=== PATIENT | male | born 1970 | race Caucasian/White ===

== ENCOUNTER 2017-04-18 10:59 | Inpatient (IN) | payer BC, OTHER ==
[2017-04-18] MEDS ORDERED: ONDANSETRON 4 MG/2 ML VIAL IVP PRN (14:37)
[2017-04-18] MEDS ORDERED: ONDANSETRON DISINTEGRATING 4 MG TAB PO PRN (14:37)
[2017-04-18] MEDS ORDERED: NS 1,000 ML IV SCH (14:45)
--- NOTE | 2017-04-18 14:55 | PDGENHP ---
History and Physical - Chief Complaint Acute shortness of breath - History of Present Illness Primary care provider: Dr Brasher HPI: 46-year-old male presenting with acute shortness of breath characterized as tachypnea at rest, exacerbated by minimal physical exertion, associated with rigors and fever of 103 degrees F as well as some confusion per his . Patient reports onset of symptoms during the afternoon of 04/17/2017 and worsening at 5:30 p.m. after work. He experienced 1 episode of nonbloody diarrhea his reports that he had 1 episode of choking when he was acutely confused. She brought him to the [facility] Emergency Department where he had blood cultures drawn and received empiric IV fluids and antibiotics. His blood cultures grew gram-negative rods and he received 5 L of fluid during the approximately 12 hours he was there. He was initially given vancomycin, ceftriaxone, levofloxacin for possible aspiration pneumonia and then he was given a dose of Zosyn for possible spontaneous bacterial peritonitis. His lactic acid level on presentation was 3.3 and increased to 5.9. His creatinine level on presentation was 1.1, and increased 1.6. His systolic blood pressure was around 90 and his heart rate was around 70. The last dose Lasix and propranolol were both taken on 04/17 in the morning. Of note, [facility] does not have access to intensive care unit, and the patient and his preferred to not be transferred to [facility]. According to the [facility] hospitalist, [facility] did not have availability for intensive care unit transfer. History Information - Allergies/Home Medication List Allergies/Adverse Reactions: No Known Allergies Allergy (Unverified 04/18/17 14:08) Home Medications: Furosemide [Lasix 20 MG (*)] 20 mg PO 04/18/17 [Last Taken Unknown] Pantoprazole Sodium [Protonix 40mg (*)] 40 mg PO DAILY 04/18/17 [Last Taken Unknown] Propranolol HCl [Inderal 20mg (*)] 20 mg PO 04/18/17 [Last Taken Unknown] I have personally reviewed and updated: family history, medical history, social history, surgical history - Past Medical History Additional medical history: Upper gastrointestinal hemorrhage secondary to bleeding varices on 03/28/2017. Cirrhosis secondary to alcohol abuse with low alpha-1 antitrypsin level. Gallbladder hydrops with sludge, total bilirubin 8.1 at time of discharge on 04/01. Lower extremity edema secondary to cirrhosis - Surgical History Additional surgical history: Variceal banding on 03/28 - Family History Additional family history: Father with coronary artery disease and myocardial infarction at age 65, alcoholism, no other recent sick family contacts - Social History Smoking Status: Former smoker (Quit on 03/08/2017) Alcohol Use: Other (Regular use of alcohol, last drink was 03/27/2017) Drug Use: None Additional social history: Works in [employer], no recent travel Review of Systems ROS: 10pt was reviewed & negative except for what was stated in HPI & below Constitutional: Reports: chills, fever Respiratory: Reports: shortness of breath, other (Choking) Gastrointestinal: Reports: diarrhea Physical Exam Temp Pulse Resp BP Pulse Ox 36.4 C 75 21 H 105/54 L 99 04/18/17 13:57 04/18/17 14:20 04/18/17 14:20 04/18/17 14:20 04/18/17 14:00 Constitutional: not in pain, uncomfortable, other (Appears diaphoretic and ill) Eyes: PERRL, EOMI, icteric sclera Ears, Nose, Mouth, Throat: other (Erythematous uvula with dried mucus in the posterior pharynx) Cardiovascular: edema (1+ bilateral lower extremity edema), No systolic murmur, No tachycardia Respiratory: reduced air movement (Bilateral bases), respiratory distress ( Visibly tachypneic), rhonchi (Right base posteriorly), No expiratory wheeze, No bronchial breath sounds Gastrointestinal: normoactive bowel sounds, ascites, distension (Moderate), No tenderness, No guarding Skin: warm, other (Sweating) Neurologic: AAOx3, No asterixes (No tremulousness) Psychiatric: interacting appropriately, not anxious, not encephalopathic, thought process linear Lab Data & Imaging Review Visualized and Interpreted EKG results: Yes EKG Interpretation: Positive for: other (Normal sinus mechanism, incomplete right bundle branch block, Q-wave in lead 3) Assessment & Plan Assessment: 46-year-old male presents with suspected septic shock secondary to gram- negative xiomara bacteremia Plan: 1. Suspected septic shock. POA, evidenced by sofa score of 6, meeting sepsis-3 criteria, with hypotension, lactic acidosis, acute kidney injury, severe hyperbilirubinemia, clear source of infection notably Gram-negative xiomara bacteremia resulting in autonomic dysregulation -discussed with Dr. Fournier at [facility], I requested a central venous line for CVP monitoring as well as possible pressors, he is able to perform -lactic acid prior to arrival 5.9, repeat at this time, will recheck at 6:00 p.m. -anticipate there may be delayed clearance of lactic acid but the fact that it petrona from 3.3-5.9 indicates that the patient has been experiencing end-organ hypoperfusion and that is how will interpret further rise in lactic acid level -continue on normal saline 100 cc an hour and check serum albumin level -CVP currently 12, hold on further boluses as the patient has received 5 L of fluid -if lactic acid level is rising and mean arterial pressure remains less than 65 , will add low-dose Levophed -continue on empiric IV antibiotics 2. Gram-negative xiomara bacteremia. Potential sources include spontaneous bacterial peritonitis versus biliary source with recent ultrasound demonstrating hydrops and sludge versus aspiration pneumonia -will get immediate paracentesis to evaluate for cell count, Gram stain, culture -will repeat chest x-ray to determine whether there is in fact a focal infiltrate in the right lower lobe as reported to me by Dr. Kam, [facility] hospitalist -will hold on biliary evaluation until the above 2 studies have been performed where better able to identify whether there affect the source of the bacteremia -will get Infectious Disease consultation -continue covering empirically with renally dosed Zosyn -will most likely recheck blood cultures tomorrow after 24 hours of appropriate IV antibiotics 3. Acute kidney injury. Secondary to a combination of septic shock and hypoperfusion with resultant hypovolemia, discharge creatinine level was 0.8 from 04/01 and patient has been actively taking diuretics for the past 2 and half weeks -hold diuretics -given IV fluids as mentioned above -repeat serum creatinine level now -monitor urine output and daily weights 4. Metabolic acidosis. Secondary to lactic acid, acute, monitor serum bicarbonate level 5. Anemia. Secondary to cirrhosis, decline from 11 to 9.8 at [facility], currently no evidence of acute blood loss, continue to monitor -continue Protonix once reconciled -high risk for bleeding with recently banded varices 6. Cirrhosis. Chronic liver disease secondary to alcoholism as well as possible low alpha-1 antitrypsin level per recent evaluation at [facility] 03/28-04/01 -recheck liver panel -repeat coags -hold propranolol -of note, patient's recent discharge summary from 04/01 does report that he was on 7 days of SBP prophylaxis with Bactrim Diet. Regular Prophylaxis. Low risk patient, may be high risk if immobile, start with SCDs and check platelet count as well as INR Code. Full per patient, is MPOA Disposition. Anticipated discharge uncertain this time, critically ill secondary to suspected septic shock requiring further work-up and stabilization as outlined above. 60 minutes of critical care time spent with this patient, at bedside, coordinating with the patient's nurses, coordinating care with the emergency department and hospitalist physicians at [facility], addressing the issues above, patient remains critically ill, requiring intensive care unit care.
[2017-04-18 15:24] LABS: MIXED VENOUS O2 SATURATION 76 % (65-75)
[2017-04-18 15:32] LABS: ADD DIFF? YES; ADD MORPH? NO; ATYPICAL LYMPHOCYTE FLAG 0 (0-99); FRAGMENT RBC FLAG 0 (0-99); HEMATOCRIT 30.8 % (40.0-51.0); HEMOGLOBIN 9.7 g/dL (13.7-17.5); LIPEMIA HEMOLYSIS FLAG 80 (0-99); MEAN CELL HEMOGLOBIN 34.3 pg (27.9-34.1); MEAN CELL HEMOGLOBIN CONCENTR. 31.5 g/dL (32.4-36.7); MEAN CELL VOLUME 108.8 fL (81.5-99.8); MEAN PLATELET VOLUME 11.8 fL (8.7-11.7); PLATELET CLUMPS FLAG 20 (0-99); PLATELET COUNT 95 10^3/uL (150-400); RED BLOOD CELL COUNT 2.83 10^6/uL (4.40-6.38)
[2017-04-18 15:39] LABS: ADD SCAN? NO; LEFT SHIFT FLG 210 (0-99)
[2017-04-18 15:51] LABS: ALANINE AMINOTRANSFERASE 57 IU/L (21-72); ALKALINE PHOSPHATASE 76 IU/L (38-126); ANION GAP 14 mEq/L (8-16); ASPARTATE AMINOTRANSFERASE 99 IU/L (17-59); BILIRUBIN,TOTAL 7.2 mg/dL (0.1-1.4); CALCIUM 7.3 mg/dL (8.5-10.4); CARBON DIOXIDE 11 mEq/l (22-31); CHLORIDE 114 mEq/L (97-110); CREATININE 1.6 mg/dL (0.7-1.3); GLOMERULAR FILTRATION RATE 46; GLUCOSE 125 mg/dL (70-100); SODIUM 139 mEq/L (134-144)
[2017-04-18 15:59] LABS: INR 3.26 (0.83-1.16); PROTIME(PATIENT) 33.7 SEC (12.0-15.0)
[2017-04-18 16:07] LABS: BILIRUBIN-CONJUGATED 4.2 mg/dL (0.0-0.5)
[2017-04-18] MEDS: SODIUM BICARBONATE 150 MEQ in D5W 1,000 ML IV SCH (16:24)
[2017-04-18] MEDS: PHYTONADIONE 2.5 MG/2.5 ML ORAL UDL PO SCH (16:25)
[2017-04-18] MEDS ORDERED: NOREPINEPHRINE/NS 500 ML IV SCH (16:30)
[2017-04-18 16:34] LABS: PLATELET ESTIMATE DECREASED (ADEQ)
[2017-04-18 16:36] LABS: TOXIC VACUOLIZATION PRESENT
[2017-04-18 16:37] LABS: MACROCYTES 2+; POLYCHROMASIA 1+; SCHISTOCYTES 1+
[2017-04-18 16:58] LABS: APTT 103.1 SEC (23.0-38.0)
[2017-04-18 17:00] LABS: PLATELET COUNT 95 10^3/uL (150-400)
[2017-04-18] MEDS ORDERED: ALBUMIN 25% 200 ML IV ONE (17:28)
[2017-04-18 17:34] LABS: FIBRINOGEN 148 mg/dL (214-456)
[2017-04-18] MEDS: PANTOPRAZOLE SODIUM 40 MG TAB PO SCH (20:18)
[2017-04-18] MEDS: PIPERACILLIN/TAZO 3.375 GM/DEX 50 ML IV SCH (21:36)
[2017-04-18] MEDS ORDERED: PHENYLEPHRINE HCL 50 MG in D5W 250 ML IV SCH (22:00)
[2017-04-18] MEDS ORDERED: NOREPINEPHRINE BITARTRATE 16 MG in NS 250 ML IV SCH (22:00)
[2017-04-18 22:07] LABS: ANION GAP 10 mEq/L (8-16); CALCIUM 7.4 mg/dL (8.5-10.4); CARBON DIOXIDE 15 mEq/l (22-31); CHLORIDE 111 mEq/L (97-110); CREATININE 1.7 mg/dL (0.7-1.3); GLOMERULAR FILTRATION RATE 43; GLUCOSE 110 mg/dL (70-100); POTASSIUM 4.6 mEq/L (3.5-5.2); SODIUM 136 mEq/L (134-144)
[2017-04-18 22:25] LABS: PROCALCITONIN 35.36 ng/mL (0.02-0.10)
[2017-04-18] MEDS: VASOPRESSIN/DEXTROSE 250 ML IV SCH (22:28)
[2017-04-18] MEDS: HYDROCORTISONE 100 MG/2 ML VIAL IVP SCH (23:15)
[2017-04-19] MEDS: SODIUM BICARBONATE 150 MEQ in D5W 1,000 ML IV SCH ×2 (02:34→14:21)
[2017-04-19] MEDS: PIPERACILLIN/TAZO 3.375 GM/DEX 50 ML IV SCH (06:18)
[2017-04-19 06:31] LABS: ADD DIFF? YES; ADD MORPH? NO; ATYPICAL LYMPHOCYTE FLAG 0 (0-99); FRAGMENT RBC FLAG 0 (0-99); HEMATOCRIT 26.9 % (40.0-51.0); HEMOGLOBIN 8.4 g/dL (13.7-17.5); LIPEMIA HEMOLYSIS FLAG 80 (0-99); MEAN CELL HEMOGLOBIN 33.3 pg (27.9-34.1); MEAN CELL HEMOGLOBIN CONCENTR. 31.2 g/dL (32.4-36.7); MEAN CELL VOLUME 106.7 fL (81.5-99.8); MEAN PLATELET VOLUME 11.7 fL (8.7-11.7); PLATELET CLUMPS FLAG 0 (0-99); PLATELET COUNT 84 10^3/uL (150-400); RED BLOOD CELL COUNT 2.52 10^6/uL (4.40-6.38); RED CELL DISTRIBUTION WIDTH 17.1 % (11.5-15.2)
[2017-04-19 06:34] LABS: ADD SCAN? NO; LEFT SHIFT FLG 190 (0-99)
[2017-04-19 06:40] LABS: INR 4.04 (0.83-1.16)
[2017-04-19 06:58] LABS: ECHINOCYTES 1+; MACROCYTES 1+
[2017-04-19 06:59] LABS: ACANTHOCYTES 1+; PLATELET ESTIMATE DECREASED (ADEQ)
[2017-04-19 07:00] LABS: POLYCHROMASIA 1+
[2017-04-19 07:09] LABS: ALANINE AMINOTRANSFERASE 53 IU/L (21-72); ALBUMIN 2.2 g/dL (3.5-5.0); ALKALINE PHOSPHATASE 83 IU/L (38-126); ANION GAP 10 mEq/L (8-16); ASPARTATE AMINOTRANSFERASE 84 IU/L (17-59); BILIRUBIN,TOTAL 6.3 mg/dL (0.1-1.4); CALCIUM 7.6 mg/dL (8.5-10.4); CARBON DIOXIDE 16 mEq/l (22-31); CHLORIDE 110 mEq/L (97-110); CREATININE 1.5 mg/dL (0.7-1.3); GLOMERULAR FILTRATION RATE 50; GLUCOSE 133 mg/dL (70-100); MAGNESIUM 1.5 mg/dL (1.6-2.3); POTASSIUM 4.4 mEq/L (3.5-5.2); SODIUM 136 mEq/L (134-144); TOTAL PROTEIN 4.8 g/dL (6.3-8.2)
[2017-04-19 07:19] LABS: BILIRUBIN-CONJUGATED 3.4 mg/dL (0.0-0.5); BILIRUBIN-UNCONJUGATED 2.9 mg/dL (0.0-1.1)
[2017-04-19 07:34] LABS: PROCALCITONIN 21.92 ng/mL (0.02-0.10)
[2017-04-19] MEDS: HYDROCORTISONE 100 MG/2 ML VIAL IVP SCH ×2 (08:40→20:49)
[2017-04-19] MEDS: PHYTONADIONE 2.5 MG/2.5 ML ORAL UDL PO SCH (08:41)
[2017-04-19] MEDS: VASOPRESSIN/DEXTROSE 250 ML IV SCH (08:41)
[2017-04-19] MEDS: PANTOPRAZOLE SODIUM 40 MG TAB PO SCH ×2 (08:41→20:48)
[2017-04-19] MEDS: FOLIC ACID 1 MG TAB PO SCH (08:41)
--- NOTE | 2017-04-19 11:16 | GCON ---
[f rep st] CONSULTATION INFECTIOUS DISEASE CONSULT DATE OF CONSULTATION: 04/19/2017 REFERRING PHYSICIAN: Christiano Shultz MD REASON FOR CONSULT: To assist in the management of this 46-year-old male with alcoholic cirrhosis, admitted with gram-negative xiomara bacteremia with gram- negative xiomara sepsis. Please note that the history was obtained from the patient, his , and data from [facility]. HISTORY OF PRESENT ILLNESS: This patient is a very pleasant 46-year-old male whose previous medical history is notable for the followin. Recent diagnosis of alcoholic cirrhosis: The patient presented to the [facility] on March 28, 2017 with hemodynamically stable hematemesis. An EGD revealed esophageal varices, and he underwent a banding procedure with 4 bands placed. He was admitted to the intensive care unit. An abdominal ultrasound revealed evidence of portal hypertension and cirrhosis, as well as a hydropic gallbladder with gallbladder thickening, but no ductal dilatation. This was felt to be nonspecific in the setting of background cirrhosis. The patient was not transfused and was clinically stable during that hospitalization. He was discharged on April 01, 2017 in stable condition. He was discharged on Bactrim 1 tab p.o. twice daily for 3 days as prophylaxis after banding procedure. He was referred to a checkering machine adjuster as well as an alcohol treatment program. Also of note, hepatitis C and B testing were negative during that hospitalization. Chest x-ray on March 28, 2017 did not reveal any evidence of infiltrate. 2. History of longstanding alcoholism: The patient states he drinks anywhere from 8-10 glasses of vodka per day for multiple years now. There is a family history of alcoholism. He has not had a drop to drink since March 27, 2017. He is unable to afford an intensive outpatient treatment program at [facility]. 3. History of longstanding tobacco use disorder: He has been cutting way down and has quit practically over the past 3 weeks. 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 He works from 7:30 to 5:30 in the afternoon. He has been doing reasonably well, but states that his abdominal girth and lower extremity swelling have become progressive since hospital discharge. That being said, he has been still able to work his long hours. He has had no melenic stool or further episodes of hematemesis. The patient states he was doing reasonably well until this past Thursday. He states that he woke up feeling well, went to work, ate lunch and around 5:00 p.m. prior to heading home from work started "shaking uncontrollably." The patient tells me that it was 90 degrees outside and he felt extremely cold. He drove himself home. His temperature at home taken by his orally was 100.6. She gave him some Tylenol and noticed that the patient appeared winded and was breathing fast. She states that she gave him half of a banana to eat along with some water, and heard him choking on this. A couple of hours later, the patient states that he developed significant abdominal cramping and had a large watery bowel movement that was without blood or mucus. He states that his abdomen felt better after this large bowel movement. There was no associated nausea, vomiting or blood in his stool. The patient's states that he did not want to go to the emergency room and was being very stubborn, so she decided to call 911 after speaking to a good friend of hers who is a storage wharfage clerk. Of note, the patient was still having rigors at the time the vp cardiovascular service line arrived. When they arrived, his temperature was 103.9. He was taken to [facility], where his temperature was 103 with a stable blood pressure. His white blood cell count was found to be elevated at 19,000, creatinine 1.6, and serum lactate was 5.9. A chest x-ray showed a right basilar opacification. Blood cultures were drawn and he was given vancomycin, ceftriaxone, and levofloxacin x1 as treatment for hospital associated pneumonia in the setting of his recent hospitalization earlier this month. He was heavily hydrated with 5 L of IV fluid. He essentially spent the night in the emergency department and was evaluated by the hospitalist the next day. Because the patient required treatment in an intensive care unit which was not available at the [facility], he was transferred to [facility] for further evaluation and treatment. The patient states he did not want to go to [facility], as he preferred to be closer to his home. He was given a dose of piperacillin/ tazobactam 3.375 g prior to transfer to our facility, and a central line was placed. Upon arrival here, the patient was afebrile with a temperature of 36.4 with a blood pressure of 88/46 at its lowest. The patient was transferred to the intensive care unit and started on pressors in the form of vasopressin and Levophed. He was continued on Zosyn. I am now asked to assist in his management. In speaking with the patient, he denies headache, blurred vision, nausea, vomiting, sore throat, shortness of breath, cough, chest pain or significant abdominal pain. No burning with urination. Diarrhea as outlined in the HPI. No skin lesions, or pain in his extremities. EXPOSURE HISTORY: Notable for no recent travel within or outside of the [place]. The patient states that 2 weeks ago he ate raw tuna rolls at a [employer] restaurant, but this was shortly after hospital discharge in early March. Of note, the patient states this past Thursday he obtained take out from "[employer]" restaurant in [place] and consumed 6 large raw oysters. His also ate them. The patient states that he tremendously enjoys eating raw oysters. He has a dog at home who is healthy. No other pets. No recent water exposure, other than to his chlorinated pool affiliated with his [facility]. He enjoys golfing. No rodent exposure. He does not garden, renee, or skin animals. No other raw foods, undercooked foods, homemade sausage or unpasteurized foods. He lives at home with his in [place]. His 19- year-old son also lives with them. He has been well. PREVIOUS MEDICAL HISTORY: As outlined above. ALLERGIES: No known drug allergies. MEDICATIONS: Presently include Zosyn 3.375 g IV q.8 hours, Levophed, vasopressin, folate, Solu-Cortef. SOCIAL HISTORY: Exposure history as outlined above. Other notable social history includes the fact that the patient was born and raised here in [place]. He is a former heavy smoker and drinker. He states that he was HIV tested years ago. That was negative, but has not been tested since then. 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 He has 6 children together with his and 1 son living at home who is healthy. No travel. He enjoys golfing, but no other unusual exposures. 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 FAMILY HISTORY: Notable for alcoholism. REVIEW OF SYSTEMS: As outlined above. Otherwise 10 systems are reviewed and are negative. PHYSICAL EXAMINATION: VITAL SIGNS: T-current is 36.7, T-max 36.9, heart rate 80, blood pressure 131/63, 98% on room air. GENERAL: A middle-aged male lying in bed, nontoxic appearing. HEENT: Atraumatic, normocephalic. Pupils equal, round, reactive to light. Extraocular movements are intact. Positive scleral icterus. No petechial lesions. No sinus process tenderness or discharge from the nares. Mucous membranes moist. No oral lesions noted. Dentition in fair repair. NECK: No cervical or supraclavicular lymphadenopathy. No thyromegaly or palpable thyroid nodules. The patient has a central line in his right neck that looks fine. CARDIOVASCULAR: S1 and S2. No rubs, gallops or murmurs. LUNGS: No increased respiratory effort. Decreased breath sounds at the right base with E to A changes. ABDOMEN: Minimally distended. No fluid waves. Hepatomegaly with liver margin palpable approximately 3 cm below the costal margin. Difficult to palpate spleen secondary to patient's body habitus. No significant tenderness to palpation. The patient's scrotum and phallus are slightly swollen. EXTREMITIES: 2+ pitting edema of the lower extremities. No ecchymoses, evidence of arthritis or muscle belly tenderness. SKIN: Warm and dry. As per the above, no ecchymoses. Scattered spider angiomata on his chest , back and lower extremities. No stigmata of endocarditis. NEUROLOGIC: He is alert and oriented x3. No asterixis. No focal weakness. Sensation intact to light touch. LABORATORY DATA: Microbiologic data: Blood cultures from [facility] x2 sets are growing 2/4 bottles gram-negative rods. No other cultures were obtained. The patient's white blood cell count here was 25.2, hematocrit 27, platelet count of 84, 71% neutrophils, 18% bands. BUN and creatinine 27 and 1.5. Total bilirubin of 6.3, down from 7.2. Conjugated 3.4, unconjugated 2.9. AST 84, ALT 53, procalcitonin of 21.9, down from 35. C difficile toxin in the stool negative. IMAGING: Chest x-ray, PA and lateral, done on April 18, 2017 at our facility shows "stable right basilar opacities and linear right midlung opacity that could be related to a combination of effusion and atelectasis. Underlying pneumonia cannot be excluded." Upon review of data through [facility], this was also done at [facility] which revealed a right basilar opacification that was not present on March 28, 2017. Ultrasound of the abdomen done at our facility was only done to look for evidence of ascitic fluid for paracentesis. There was only a trace amount of fluid found in the right lower quadrant, without quantity sufficient for paracentesis. IMPRESSION: 46-year-old male with recent diagnosis of cirrhosis secondary to long-standing alcohol abuse who now presents with gram-negative xiomara sepsis. Of particular note, the patient is status post recent ingestion of raw oysters 2 days prior to rigors and diarrhea, concerning for infection secondary to vibrio species, such as vulnificus or parahaemolyticus. He is at particularly high risk for this infection in the setting of cirrhosis. Thankfully, the patient has no skin lesions or evidence of cellulitis/necrotizing fasciitis, frequently seen with vibrio infections in this setting. He also has evidence of a right lower lobe infiltrate, but is oxygenating well and suspect this is from an aspiration event at the time he became ill with rigors. I do not feel this is the primary rivet driver of the patient's clinical presentation. He does not have significant ascites, which argues against a diagnosis of spontaneous bacterial peritonitis. Given benign exam, gallbladder or biliary ductal pathology seem less likely, although this still remains in the differential diagnosis of gram-negative xiomara bacteremia. Again, I am most concerned about his recent ingestion of raw oysters. PLAN: 1. Await identification of gram-negative rods from [facility]. I have called them ([phone]) and am waiting to hear back. 2. Will repeat blood cultures here. 3. Continue Zosyn for now and start levofloxacin 750 IV daily to cover vibrio species. 4. Repeat right upper quadrant ultrasound with particular attention to the gallbladder and biliary ducts. 5. Obtain urinalysis. 6. The patient has agreed to an HIV antibody test for completeness sake. 7. If the diarrhea persists, obtain GI stool panel, but suspect this diarrhea is related to possible infection with vibrio species. Thank you very much for consulting Infectious Diseases. We will continue to follow this patient with you. /[id number]/MODL MTDD
--- NOTE | 2017-04-19 11:16 | PCMIDPN ---
Assessment/Plan: 1. Vibrio vulnificus sepsis without evidence of skin/soft tissue infection or necrotizing fasciitis in patient with underlying cirrhosis: Counseled the patient extensively about avoiding shellfish and oysters moving forward given his new diagnosis of cirrhosis; explained to him that this infection was acquired through recent ingestion of raw oysters. Told him to avoid raw fish of any kind, or any raw food for that matter. Will continue with levofloxacin monotherapy. Repeat blood cultures are pending. I do not feel that he needs a repeat ultrasound to evaluate his bile duct/gallbladder given above diagnosis. Discontinue Piperacillin/tazobactam. 2. Right lower lobe infiltrate: Likely secondary to aspiration in the setting of active rigors. Levofloxacin should suffice. Subjective: Called by the microbiology laboratory at the [facility]. ) Blood cultures are growing in 2/4 bottles Vibrio vulnificus. Had long conversation with patient today about the loi of this infection (raw oysters). He states that no one had told him about this risk. Objective: Vital Signs Temp Pulse Resp BP Pulse Ox 36.7 C 76 26 H 128/63 H 96 04/19/17 08:00 04/19/17 10:00 04/19/17 10:00 04/19/17 10:00 04/19/17 10:00 Laboratory Results 04/19/17 06:20 04/19/17 06:20 04/18/17 04/19/17 04/20/17 05:59 05:59 05:59 Intake Total 2700 Output Total 375 Balance 2325 ICD10 Worksheet Patient Problems: Problems Problem Status Onset Sepsis due to Vibrio vulnificus Acute
--- NOTE | 2017-04-19 11:25 | HOSPPROG ---
Hospitalist Progress Note Assessment/Plan: Assessment: 46-year-old male presents with septic shock secondary to Vibrio bacteremia c/b acute liver failure from recently diagnosed alcoholic cirrhosis Plan: 1. Septic shock. POA, evidenced by sofa score of 9, meeting sepsis-3 criteria - worsening hypotension o/n, requiring combination of albumin + steroid burst + levo/vaso in order to stabilize - given liver failure, lactic acid level will likely not clear appropriately, but will track throughout day as we wean pressors to ensure it is not rising and indicative of hypoperfusion while we wean - cont stress steroids, likely accounting for rise in WBC this AM - hold on further albumin, CVP currently 13-16 2. Vibrio bacteremia. Likely source is raw oysters recently ingested in setting of cirrhosis and increased risk of infection - d/w Dr. Mccollum, adjusted to Levofloxacin and she will investigate whether to add second agent - repeating BCx here - original BCx at [facility], check for susceptibilities - ID consult greatly appreciated 3. Acute kidney injury. Secondary to a combination of septic shock and hypoperfusion with resultant hypovolemia, discharge creatinine level was 0.8 from 04/01 and patient has been actively taking diuretics for the past 2 and half weeks - hold diuretics - cont on bicarb gtt given acidosis - monitor UOP and observe for any sign of hepatorenal syndrome 4. Metabolic acidosis. Secondary to lactic acid, acute, monitor serum bicarbonate level and cont bicarb gtt 5. Anemia. Secondary to cirrhosis w/o e/o blood loss, decline from 11 to 8.4 w / IVF (likely dilutional) - high risk for bleeding with recently banded varices as well as DIC/liver- coagulopathy 6. Acute liver failure with Alcoholic Cirrhosis. New diagnosis 03/28-04/01 of chronic liver disease secondary to alcoholism as well as possible low alpha-1 antitrypsin level per recent evaluation at [facility] w/ varices banded - hold on propranolol - anemia, thrombocytopenia, coagulopathy - d/w Dr. Ramirez, not enough ascites to safely perform para - recent US demonstrating biliary sludge and hydrops, but will hold on repeat US as there is neg Liu's sign and source of infxn is clearly Vibrio - currently receiving SBP ppx w/ levo for above - MELD is 34 (up from 27 during 04/01 hospitalization) and he has 60-65% 90-day mortality risk - will need immediate outpt Hepatology eval if/when above resolved - hold on referral to liver transplant center at this time, as his last drink () is within 30-days and he is actively bacteremic, so would not be considered an immediate transplant candidate 7. DIC and Coagulopathy. 2/2 combination of infxn-induced DIC and underlying liver-failure mediated coagulopathy, evidenced by Fibrinogen 150 and INR rising to 4 - if bleeds, consider Plts/FFP - giving 5 days of Vit K - monitor daily PT/PTT 8. Possible RLL aspiration pneumonia. CXR w/ dense RLL infiltration and physical exam w/ aegophony/reduced air movement in R base - very unlikely to be source of current bacteremia - that said, currently covered for community organisms/aspiration by Levofloxacin - if clinically worsening despite tx for above, would consider HCAP (recently hospitalized) and add Vanco (received 1 dose at ED 04/18) Diet. Regular Prophylaxis. High risk, pharm contraindicated given above, SCDs Code. Full per patient, is MPOA Disposition. Anticipated discharge uncertain this time, critically ill secondary to suspected septic shock requiring further work-up and stabilization as outlined above. 60 minutes of critical care time spent with this patient, at bedside w/ patient/ , coordination with Dr. Horan/Veda on rounds, addressing above. Subjective: Patient with several loose bowel movements overnight Objective: Vital Signs Temp Pulse Resp BP Pulse Ox 36.7 C 76 26 H 128/63 H 96 04/19/17 08:00 04/19/17 10:00 04/19/17 10:00 04/19/17 10:00 04/19/17 10:00 Laboratory Results 04/19/17 06:20 04/19/17 06:20 04/18/17 04/19/17 04/20/17 05:59 05:59 05:59 Intake Total 2700 Output Total 375 Balance 2325 PT 40.0 SEC (12.0-15.0) H 04/19/17 06:20 INR 4.04 (0.83-1.16) H 04/19/17 06:20 - Physical Exam Constitutional: not in pain, other ( unwell appearing), No uncomfortable Eyes: EOMI, icteric sclera Ears, Nose, Mouth, Throat: moist mucous membranes, hearing normal, ears appear normal, no oral mucosal ulcers Cardiovascular: edema ( +bilateral lower extremity), No systolic murmur, No irregularly irregular, No tachycardia Respiratory: reduced air movement ( right base), rhonchi ( on inspiration right base), No expiratory wheeze, No bronchial breath sounds Gastrointestinal: normoactive bowel sounds, tenderness ( minimal discomfort with moderate palpation, no focality), distension ( moderate), No guarding Genitourinary: no bladder fullness, other ( no CVA tenderness to palpation) Skin: other ( sweaty appearing, no bullae) Neurologic: AAOx3, sensation intact bilaterally, other ( tremulous) Psychiatric: interacting appropriately, not encephalopathic, thought process linear, anxious ICD10 Worksheet Patient Problems: Problems Problem Status Onset Sepsis due to Vibrio vulnificus Acute
--- NOTE | 2017-04-19 14:35 | PDINTPN ---
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 BP is at goal on low-dose NE and G[employer] M[employer] at 0.4, steroids. Vibrio Bacteremia: On Levaquin, started 04/18 Cirrhosis with hepatic failure: Bilirubin and INR remain elevated SUSANNAH: Cr down slightly but still elevated. Good urine output. Anemia: Hemoglobin is down further, likely due to dilution. No signs of active bleeding. Metabolic acidosis: Both anion gap due to lactate as well as non-anion gap likely due to acute kidney injury. Plan: Continue to wean pressors. Continue Levaquin. Follow INR, liver function, hemoglobin, and lactate. 40 minutes critical care time managing multisystem organ failure in the setting of severe sepsis. 04/19/17 14:36 Subjective: Feels better, strength improved. Still having some loose bowel movements. No chills. Appetite recovering. Abdominal fullness persists. Objective: Vital Signs Temp Pulse Resp BP Pulse Ox 36.8 C 75 23 H 116/65 96 04/19/17 12:00 04/19/17 14:00 04/19/17 14:00 04/19/17 14:00 04/19/17 14:00 Laboratory Results 04/19/17 06:20 04/19/17 06:20 04/18/17 04/19/17 04/20/17 05:59 05:59 05:59 Intake Total 2700 Output Total 375 300 Balance 2325 -300 PT 40.0 SEC (12.0-15.0) H 04/19/17 06:20 INR 4.04 (0.83-1.16) H 04/19/17 06:20 Laboratory Tests 04/19/17 04/19/17 04/19/17 04:28 06:20 14:00 INR 4.04 H VBG Lactic Acid 4.3 H C. difficile Tox (PCR) NEGATIVE Physical Exam - Physical Exam General Appearance: alert, no apparent distress EENT: normal ENT inspection, scleral icterus (R), scleral icterus (L) Neck: normal inspection Respiratory: lungs clear, normal breath sounds Cardiac/Chest: regular rate, rhythm, edema Abdomen: normal bowel sounds, non-tender, soft Skin: normal color, warm/dry Extremities: non-tender Neuro/Psych: alert, normal mood/affect, oriented x 3 ICD10 Worksheet Patient Problems: Problems Problem Status Onset Sepsis due to Vibrio vulnificus Acute
--- NOTE | 2017-04-19 15:01 | GHP ---
[f rep st] HISTORY AND PHYSICAL DATE OF ADMISSION: 04/18/2017 PULMONARY/CRITICAL CARE CONSULTATION. REFERRING PROVIDER: Dr. Shultz. REASON FOR REFERRAL: Evaluation and management of severe sepsis. HISTORY: Mr. Soares is a 46-year-old male who was recently diagnosed with alcoholic cirrhosis afte r presenting with hematemesis 3 weeks ago. He was found to have esophageal varices and underwent ba nding in the intensive care unit. He was not transfused at that time. He was doing fairly well unt in yesterday evening, when he started having uncontrollable shakes and chills. He had a fever and s tarting to become quite tachypneic. This was followed by abdominal cramping and watery diarrhea. Aiden mason was transferred to the [facility] where he was found to be febrile and had an elevated wh ite blood count. Blood cultures were drawn and he was given vancomycin, ceftriaxone and Levaquin wi th the presumed diagnosis of hospital-acquired pneumonia. He was also given about 5 L of fluid. He was then transferred to [facility] after a central line was placed. Upon arrival, he was afebrile, but still was hypotensive and was started on vasopressin and Levophed and he was pl aced on Zosyn. He states that his fevers and chills have resolved, and he denies abdominal pain, cr amping or coughing. PAST MEDICAL HISTORY: Alcoholic cirrhosis with esophageal varices as above. MEDICATIONS: Include Protonix, Inderal, Lasix and Zosyn. ALLERGIES: None. SOCIAL HISTORY: The patient is a heavy drinker, drinking about 10 alcoholic beverages daily, stoppe d 3 weeks ago. He also has been a heavy smoker and stopped a month ago. 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 FAMILY HISTORY: Positive for alcoholism. REVIEW OF SYSTEMS: A 10-point review of systems adds nothing to the history of present illness. PHYSICAL EXAMINATION: GENERAL: The patient is awake, alert, in no acute distress. VITAL SIGNS: B lood pressure is 92/55 with a heart rate of 78. He is afebrile. Oxygen saturations are 100% on evetet m air. HEENT: Normocephalic and atraumatic. He has mild icterus. NECK: No adenopathy. Trachea is midline. CHEST: He has a few rales in the right base. CARDIAC: Regular rate and rhythm withou t murmur. ABDOMEN: Soft, nontender. Bowel sounds are present. EXTREMITIES: No clubbing, cyanosi s or edema. LABORATORY: His white blood count of 24.4 with 18% bands. His hemoglobin is 9.7 and MCV is 108.8. A creatinine is 1.6, carbon dioxide level is 14, total bilirubin is 7.2 with a conjugated bilirubin of 4.2 and AST is 99. Glucose is 125 and anion gap is 14. Lactic is 5.9. An INR is 3.3. A chest x-ray shows a right basilar infiltrate. Images reviewed. ASSESSMENT: 1. Severe sepsis. The patient presented with a fever, hypotension, acute renal insufficiency and a n elevated white blood count. The most likely cause is pneumonia. The patient has blood cultures t hat are positive for a gram-negative xiomara, based on cultures done at the [facility]. The pa susan's lactate is still significantly elevated, although this could in part be due to reduced clear ance from hepatic insufficiency. The patient has been started on Zosyn. His blood pressure is curr ently adequate and he does not require pressors. His CVP is 12, so no further fluids will be given. 2. Hepatic failure. The patient has an elevated bilirubin and INR suggesting significant synthetic dysfunction. He currently has no active bleeding. This is apparently due to alcoholic cirrhosis. 3. Acute kidney injury. We do not have a baseline creatinine, but it seems likely that there is an acute component to this, given the patient's critical illness and elevated creatinine. The patient has received fluid resuscitation for what is likely ATN and prerenal state due to sepsis. 4. Metabolic acidosis. This is likely due to the patient's lactic acidosis. 5. Anemia. This is likely chronic with the elevated MCV, but also with an acute component due to d ilution from the fluid resuscitation. RECOMMENDATIONS: 1. Continue empiric antibiotics. 2. Start pressors if necessary to maintain a mean arterial pressure greater than 65. 3. Follow lactate, INR and hemoglobin levels as well as renal function. There is no indication for red blood cell transfusion at this point. 50 minutes of critical care time managing the patient's multiple organ dysfunction in the setting of severe sepsis. /[id number]/MODL
[2017-04-19 15:29] LABS: COLOR AMBER; LEUKOCYTE ESTERASE,URINE NEGATIVE (NEGATIVE); NITRITE,URINE NEGATIVE (NEGATIVE)
[2017-04-19 15:35] LABS: MUCUS TRACE /lpf (NONE-1+)
[2017-04-20] MEDS: SODIUM BICARBONATE 150 MEQ in D5W 1,000 ML IV SCH (04:02)
[2017-04-20 04:09] LABS: ADD DIFF? YES; ADD MORPH? NO; ATYPICAL LYMPHOCYTE FLAG 0 (0-99); FRAGMENT RBC FLAG 0 (0-99); HEMATOCRIT 25.4 % (40.0-51.0); HEMOGLOBIN 8.2 g/dL (13.7-17.5); LIPEMIA HEMOLYSIS FLAG 80 (0-99); MEAN CELL HEMOGLOBIN 33.9 pg (27.9-34.1); MEAN CELL HEMOGLOBIN CONCENTR. 32.3 g/dL (32.4-36.7); MEAN PLATELET VOLUME 12.1 fL (8.7-11.7); PLATELET CLUMPS FLAG 0 (0-99); PLATELET COUNT 71 10^3/uL (150-400); RED BLOOD CELL COUNT 2.42 10^6/uL (4.40-6.38); RED CELL DISTRIBUTION WIDTH 16.9 % (11.5-15.2)
[2017-04-20 04:14] LABS: ADD SCAN? NO; LEFT SHIFT FLG 160 (0-99)
[2017-04-20 04:19] LABS: INR 3.4 (0.83-1.16); PROTIME(PATIENT) 34.9 SEC (12.0-15.0)
[2017-04-20 04:27] LABS: ALANINE AMINOTRANSFERASE 50 IU/L (21-72); ALKALINE PHOSPHATASE 69 IU/L (38-126); ANION GAP 7 mEq/L (8-16); ASPARTATE AMINOTRANSFERASE 63 IU/L (17-59); BILIRUBIN,TOTAL 5.5 mg/dL (0.1-1.4); CALCIUM 7.5 mg/dL (8.5-10.4); CARBON DIOXIDE 22 mEq/l (22-31); CHLORIDE 108 mEq/L (97-110); CREATININE 1.1 mg/dL (0.7-1.3); GLOMERULAR FILTRATION RATE > 60; GLUCOSE 104 mg/dL (70-100); POTASSIUM 3.6 mEq/L (3.5-5.2); SODIUM 137 mEq/L (134-144); TOTAL PROTEIN 4.4 g/dL (6.3-8.2)
[2017-04-20 04:38] LABS: BILIRUBIN-CONJUGATED 2.7 mg/dL (0.0-0.5); BILIRUBIN-UNCONJUGATED 2.8 mg/dL (0.0-1.1)
[2017-04-20 04:49] LABS: MACROCYTES 1+; POLYCHROMASIA 1+
[2017-04-20 04:55] LABS: HYPOCHROMIA 1+; PLATELET ESTIMATE DECREASED (ADEQ)
[2017-04-20] MEDS ORDERED: HYDROCORTISONE 100 MG/2 ML VIAL IVP SCH ×2 (09:00→21:00)
[2017-04-20] MEDS: FOLIC ACID 1 MG TAB PO SCH (09:24)
[2017-04-20] MEDS: PHYTONADIONE 2.5 MG/2.5 ML ORAL UDL PO SCH (09:24)
[2017-04-20] MEDS: PANTOPRAZOLE SODIUM 40 MG TAB PO SCH ×2 (09:24→20:19)
[2017-04-20] MEDS: HYDROCORTISONE 100 MG/2 ML VIAL IVP SCH ×2 (09:24→20:19)
--- NOTE | 2017-04-20 09:44 | PCMIDPN ---
Assessment/Plan: # Sepsis secondary to Vibrio vulnificus in patient with underlying cirrhosis after eating raw oysters --reviewed that all fish and meats should be eaten fully cooked --continue levofloxacin, change to PO today, tolerating PO well --repeat blood cx collected yesterday 04/19. Plan 10-14 days of therapy --talked with head of micro lab at [facility], gave feedback that from oysters. Deferred further testing with response to therapy and minimal resistance # Cirrhosis due to EtOH, abstinent ~20ish days! Support provided meds, Abx #3 levofloxacin 750mg IV daily #2 microbiology 04/19 blood cx (2) pending Subjective: patient feeling well worried about massive weight gain from fluids Objective: Vital Signs Temp Pulse Resp BP Pulse Ox 36.6 C 78 19 118/69 92 04/20/17 04:00 04/20/17 08:00 04/20/17 08:00 04/20/17 08:00 04/20/17 08:00 Laboratory Results 04/20/17 04:00 04/20/17 04:00 04/19/17 04/20/17 04/21/17 05:59 05:59 05:59 Intake Total 2700 3998 Output Total 375 2700 Balance 2325 1298 - Physical Exam General Appearance: alert, no apparent distress EENT: scleral icterus Respiratory: other (decreased bs bases), No accessory muscle use Neck: supple Cardiac/Chest: regular rate, rhythm Extremities: pedal edema Abdomen: non-tender, soft, ascites Skin: jaundice, pallor, No diaphoresis Neuro/Psych: alert, normal mood/affect, oriented x 3 - Line/s other Lines: other (R IJ), No drainage, No erythema - Time Spent With Patient Time Spent with Patient: greater than 25 minutes Time Spent with Patient: Greater than 25 minutes spent on this patients care, greater than 50% of time spent counseling, educating, and coordinating care regarding the above mentioned plan. ICD10 Worksheet Patient Problems: Problems Problem Status Onset Sepsis due to Vibrio vulnificus Acute
[2017-04-20] MEDS ORDERED: FUROSEMIDE 20 MG/2 ML VIAL IVP ONE (09:52)
--- NOTE | 2017-04-20 09:58 | HOSPPROG ---
Hospitalist Progress Note Assessment/Plan: 46-year-old male presents with septic shock secondary to Vibrio bacteremia c/b acute liver failure from recently diagnosed alcoholic cirrhosis Plan: #. Septic shock secondary to vibrio bacteremia after ingestion of raw oysters, with increased risk of infection due to compromised immune system in setting of cirrhosis. Overall improving. Required combination of albumin + steroid burst + levo/vaso in order to stabilize. Lactate trending down, slow to clear with poor hepatic clearance. -wean hydrocortisone -cont Levaquin per ID -repeat BCx's pending #. SUSANNAH. Secondary to septic shock and hypoperfusion, 2 weeks of diuretic use - resuming diuretics today given net positive 12 L - monitor UOP and observe for any sign of hepatorenal syndrome #. Metabolic acidosis. Secondary to lactic acid, acute, serum bicarb improved -wean off bicarb drip #. Anemia. Secondary to cirrhosis w/o e/o blood loss, decline from 11 to 8.2 w / IVF (likely some dilutional component) - high risk for bleeding with recently banded varices as well as DIC/liver- coagulopathy #. Acute liver failure with Alcoholic Cirrhosis. New diagnosis 03/28-04/01 of chronic liver disease secondary to alcoholism as well as possible low alpha-1 antitrypsin level per recent evaluation at [facility] w/ varices banded - holding propranolol - anemia, thrombocytopenia, coagulopathy - per radiology, ascites not sufficient for para - recent US demonstrating biliary sludge and hydrops, but defer further biliary imaging as infectious source is clearly vibrio - currently receiving SBP ppx w/ levo for above - MELD now 27, down from 34 (was 27 during 04/01 hospitalization), 76% 90-day mortality risk - will need outpt Hepatology eval if/when above resolved - hold on referral to liver transplant center at this time, as his last drink () is within 30-days and he is actively bacteremic, so would not be considered an immediate transplant candidate #. DIC and Coagulopathy. 2/2 combination of infxn-induced DIC and underlying liver-failure mediated coagulopathy - if bleeds, consider Plts/FFP - serial vit K, last dose tomorrow - monitor daily PT/PTT #. Possible RLL aspiration pneumonia. CXR w/ dense RLL infiltration and physical exam w/ aegophony/reduced air movement in R base - very unlikely to be source of current bacteremia, though covered for community organisms/aspiration by Levofloxacin Diet. Regular Prophylaxis. High risk, pharm contraindicated given above, SCDs / ambulation Code. Full per patient, is MPOA Disposition. Cont inpt Subjective: Pt feels better. Still some discomfort, 6/10 pain. Stools more formed. No fevers. Tolerating diet. No abdominal pain, N/V. Objective: Vital Signs Temp Pulse Resp BP Pulse Ox 36.6 C 78 19 118/69 92 04/20/17 04:00 04/20/17 08:00 04/20/17 08:00 04/20/17 08:00 04/20/17 08:00 Laboratory Results 04/20/17 04:00 04/20/17 04:00 04/19/17 04/20/17 04/21/17 05:59 05:59 05:59 Intake Total 2700 3998 Output Total 375 2700 Balance 2325 1298 PT 34.9 SEC (12.0-15.0) H 04/20/17 04:00 INR 3.40 (0.83-1.16) H 04/20/17 04:00 - Physical Exam Constitutional: no apparent distress Eyes: PERRL, icteric sclera Ears, Nose, Mouth, Throat: moist mucous membranes Cardiovascular: regular rate and rhythym Respiratory: no respiratory distress, clear to auscultation Gastrointestinal: normoactive bowel sounds, soft, non-tender abdomen Skin: warm Musculoskeletal: other (3+ LE pitting edema) Neurologic: AAOx3 Psychiatric: interacting appropriately ICD10 Worksheet Patient Problems: Problems Problem Status Onset Sepsis due to Vibrio vulnificus Acute
--- NOTE | 2017-04-20 11:51 | PDINTPN ---
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 Found to have Vibrio. On antibiotics. Being followed by Infectious Disease. Severe Sepsis: 2/2 to Vibrio, with positive blood cultures, likely due to eating oysters with underlying cirrhosis. Resolving. Now off norepinephrine as of today. Blood pressure acceptable. On Levaquin, started 04/18. Cirrhosis with hepatic failure: Bilirubin and INR remain elevated. Secondary to alcohol. Diagnosed earlier this month. Hospitalized at [facility] at that time. SUSANNAH: Resolving. Cr down: 1.1 today. Good urine output but up 10 kilos secondary to volume resuscitation. To be given Lasix today. Anemia: Hemoglobin is down further, 25 today. Secondary to dilution. No signs of active bleeding. Metabolic acidosis: Resolving. Lactate 2.8 today, bicarb 22. GI prophylaxis: Pantoprazole DVT prophylaxis: SCDs, ambulating now. Plan: Wean intravenous fluids. Lasix 20 mg x1 today. Follow blood pressure and clinical status.. Continue Levaquin. Follow INR, liver function, hemoglobin, and lactate. Can possibly transition to a medical-surgical status or step-down unit status today. Will reassess early this afternoon. 30 minutes of critical care time spent with the patient today. Discussed with the patient, Infectious Disease, hospitalist, nursing, and the ICU multi disciplinary team. Objective: Vital Signs Temp Pulse Resp BP Pulse Ox 37.2 C 75 18 122/68 H 94 04/20/17 10:00 04/20/17 10:00 04/20/17 10:00 04/20/17 10:00 04/20/17 10:00 Laboratory Results 04/20/17 04:00 04/20/17 04:00 04/19/17 04/20/17 04/21/17 05:59 05:59 05:59 Intake Total 2700 3998 Output Total 375 2700 1200 Balance 2325 1298 -1200 PT 34.9 SEC (12.0-15.0) H 04/20/17 04:00 INR 3.40 (0.83-1.16) H 04/20/17 04:00 ICD10 Worksheet Patient Problems: Problems Problem Status Onset Sepsis due to Vibrio vulnificus Acute
[2017-04-21 06:06] LABS: % IMMATURE GRANULYOCYTES 0.8 % (0.0-1.1); ABSOLUTE IMMATURE GRANULOCYTES 0.12 10^3/uL (0.00-0.10); ADD DIFF? NO; ADD MORPH? NO; ADD SCAN? NO; ATYPICAL LYMPHOCYTE FLAG 0 (0-99); FRAGMENT RBC FLAG 0 (0-99); HEMATOCRIT 26.7 % (40.0-51.0); HEMOGLOBIN 8.7 g/dL (13.7-17.5); LEFT SHIFT FLG 30 (0-99); LIPEMIA HEMOLYSIS FLAG 80 (0-99); MEAN CELL HEMOGLOBIN 33.7 pg (27.9-34.1); MEAN CELL HEMOGLOBIN CONCENTR. 32.6 g/dL (32.4-36.7); MEAN CELL VOLUME 103.5 fL (81.5-99.8); MEAN PLATELET VOLUME 11.9 fL (8.7-11.7); PLATELET CLUMPS FLAG 0 (0-99); PLATELET COUNT 75 10^3/uL (150-400); RED BLOOD CELL COUNT 2.58 10^6/uL (4.40-6.38); RED CELL DISTRIBUTION WIDTH 16.3 % (11.5-15.2)
[2017-04-21 06:23] LABS: ALANINE AMINOTRANSFERASE 53 IU/L (21-72); ALBUMIN 1.8 g/dL (3.5-5.0); ALKALINE PHOSPHATASE 76 IU/L (38-126); ANION GAP 4 mEq/L (8-16); ASPARTATE AMINOTRANSFERASE 62 IU/L (17-59); BILIRUBIN,TOTAL 5.1 mg/dL (0.1-1.4); CALCIUM 7.6 mg/dL (8.5-10.4); CARBON DIOXIDE 26 mEq/l (22-31); CHLORIDE 112 mEq/L (97-110); GLOMERULAR FILTRATION RATE > 60; GLUCOSE 90 mg/dL (70-100); POTASSIUM 3.2 mEq/L (3.5-5.2); SODIUM 142 mEq/L (134-144); TOTAL PROTEIN 4.2 g/dL (6.3-8.2)
[2017-04-21 06:40] LABS: BILIRUBIN-CONJUGATED 2.6 mg/dL (0.0-0.5); BILIRUBIN-UNCONJUGATED 2.5 mg/dL (0.0-1.1)
[2017-04-21] MEDS: PANTOPRAZOLE SODIUM 40 MG TAB PO SCH ×2 (10:33→20:36)
[2017-04-21] MEDS: FOLIC ACID 1 MG TAB PO SCH (10:33)
[2017-04-21] MEDS: FUROSEMIDE 20 MG/2 ML VIAL IVP SCH (10:34)
[2017-04-21] MEDS: HYDROCORTISONE 100 MG/2 ML VIAL IVP SCH (10:35)
--- NOTE | 2017-04-21 12:34 | PCMIDPN ---
Assessment/Plan: Assessment/Plan: 1. Sepsis secondary to Vibrio vulnificus: - Underlying Cirrhosis. - Source secondary to consumption of raw oysters. -f/u blood cx from 04/19/17 so far ngtd. -On levaquin PO. Plan for 14 days from negative blood cx. -Reviewed lab and culture results with patient. -Reviewed plan of care with patient regarding antibiotics etc. -Will set up OP follow up. Hopefully home soon. -Will coordinate with hospitalist team. Meds levaquin 750mg PO daily.-#3/ from negative blood cx. Subjective: Afebrile. Feeling better overall. Denies abd pain as such except for related to fluid. Last loose stool was yesterday. Appetite intact, ate breakfast. DEnies sob, rash. Ongoing LE edema. Objective: Vital Signs Temp Pulse Resp BP Pulse Ox 36.6 C 65 18 115/72 94 04/21/17 07:43 04/21/17 07:43 04/21/17 07:43 04/21/17 07:43 04/21/17 07:43 Laboratory Results 04/21/17 05:55 04/21/17 05:55 04/20/17 04/21/17 04/22/17 05:59 05:59 05:59 Intake Total 3998 1930 Output Total 2700 4200 Balance 1298 -2270 - Physical Exam General Appearance: alert, no apparent distress EENT: scleral icterus Respiratory: lungs clear Cardiac/Chest: regular rate, rhythm, systolic murmur Extremities: swelling (b/l LE, pitting) Abdomen: normal bowel sounds, non-tender, soft, distended Skin: No erythema ICD10 Worksheet Patient Problems: Problems Problem Status Onset Sepsis due to Vibrio vulnificus Acute
[2017-04-21] MEDS: PHYTONADIONE 2.5 MG/2.5 ML ORAL UDL PO SCH (15:14)
[2017-04-21] MEDS ORDERED: PROTOCOL POTASSIUM 1 DOSE MISC PRN (18:01)
--- NOTE | 2017-04-21 18:19 | HOSPPROG ---
Hospitalist Progress Note Assessment/Plan: 46-year-old male presents with septic shock secondary to Vibrio bacteremia c/b acute liver failure from recently diagnosed alcoholic cirrhosis Plan: #. Septic shock secondary to vibrio bacteremia after ingestion of raw oysters, with increased risk of infection due to compromised immune system in setting of cirrhosis. Overall improving. Required combination of albumin + steroid burst + levo/vaso in order to stabilize. -weaned off hydrocortisone -cont Levaquin -repeat BCx's NGTD #. SUSANNAH. Secondary to septic shock and hypoperfusion, 2 weeks of diuretic use - monitor UOP and observe for any sign of hepatorenal syndrome #. Volume overload. Diuresed net neg 4L since yesterday, weight 104 kg --> 102.8 kg. -cont IV Lasix -follow I&O, daily weights #. Metabolic acidosis. Secondary to lactic acidosis, resolved. Off bicarb. #. Anemia. Secondary to cirrhosis w/o e/o blood loss, decline from 11 to 8.2 w / IVF (likely some dilutional component). Hgb stable, up to 8.7. - high risk for bleeding with recently banded varices as well as DIC/liver- coagulopathy #. Acute liver failure with Alcoholic Cirrhosis. New diagnosis 03/28 of chronic liver disease secondary to alcoholism as well as possible low alpha-1 antitrypsin level per recent evaluation at [facility] w/ varices banded - Lasix resumed as above - per radiology, ascites not sufficient for para - recent US demonstrating biliary sludge and hydrops, but defer further biliary imaging as infectious source is clearly vibrio - currently receiving SBP ppx w/ levo - MELD now 27, down from 34 (was 27 during 04/01 hospitalization), 76% 90-day mortality risk - will need outpt Hepatology eval - not currently transplant candidate, last drink 03/27 #. Esophageal varices. No e/o bleeding. -resume propranolol #. DIC and Coagulopathy. 2/2 combination of infxn-induced DIC and underlying liver-failure mediated coagulopathy - if bleeds, consider Plts/FFP - s/p 3 d vit K - monitor daily PT/PTT #. Possible RLL aspiration pneumonia. CXR w/ dense RLL infiltration and physical exam w/ aegophony/reduced air movement in R base - very unlikely to be source of current bacteremia, though covered for community organisms/aspiration by Levofloxacin Diet. Regular Prophylaxis. High risk, pharm contraindicated given above, SCDs / ambulation Code. Full per patient, is MPOA Disposition. Cont inpt Subjective: Pt feels better, but c/o LE and generalized edema. No abdominal pain, CP or SOB. No fevers. Ambulating. Tolerating diet. Objective: Vital Signs Temp Pulse Resp BP Pulse Ox 36.7 C 64 16 130/72 H 97 04/21/17 15:48 04/21/17 15:48 04/21/17 15:48 04/21/17 15:48 04/21/17 15:48 Laboratory Results 04/21/17 05:55 04/21/17 05:55 04/20/17 04/21/17 04/22/17 05:59 05:59 05:59 Intake Total 3998 1930 600 Output Total 2700 4200 Balance 1298 -2270 600 PT 34.9 SEC (12.0-15.0) H 04/20/17 04:00 INR 3.40 (0.83-1.16) H 04/20/17 04:00 - Physical Exam Constitutional: no apparent distress Eyes: PERRL Ears, Nose, Mouth, Throat: moist mucous membranes Cardiovascular: regular rate and rhythym Respiratory: no respiratory distress, clear to auscultation Gastrointestinal: normoactive bowel sounds, other (mild distention, nontender) Skin: warm Musculoskeletal: full muscle strength Neurologic: AAOx3 Psychiatric: interacting appropriately ICD10 Worksheet Patient Problems: Problems Problem Status Onset Sepsis due to Vibrio vulnificus Acute
[2017-04-21 20:24] LABS: POTASSIUM 3.2 mEq/L (3.5-5.2)
[2017-04-21] MEDS ORDERED: POTASSIUM CL 10 MEQ TAB PO ONE (20:26)
[2017-04-21] MEDS: PROPRANOLOL HCL 20 MG TAB PO SCH (20:33)
[2017-04-22 05:26] LABS: ABSOLUTE NRBC COUNT 0.06 10^3/uL (0-0.01); ADD DIFF? YES; ADD MORPH? NO; ADD SCAN? NO; ATYPICAL LYMPHOCYTE FLAG 0 (0-99); FRAGMENT RBC FLAG 0 (0-99); HEMATOCRIT 28.8 % (40.0-51.0); HEMOGLOBIN 9.5 g/dL (13.7-17.5); LEFT SHIFT FLG 60 (0-99); LIPEMIA HEMOLYSIS FLAG 80 (0-99); MEAN CELL HEMOGLOBIN 34.1 pg (27.9-34.1); MEAN CELL VOLUME 103.2 fL (81.5-99.8); MEAN PLATELET VOLUME 11.5 fL (8.7-11.7); NRBC-AUTO% 0.5 % (0.0-0.2); PLATELET CLUMPS FLAG 0 (0-99); PLATELET COUNT 75 10^3/uL (150-400); RED BLOOD CELL COUNT 2.79 10^6/uL (4.40-6.38); RED CELL DISTRIBUTION WIDTH 16.3 % (11.5-15.2)
[2017-04-22 05:43] LABS: ALANINE AMINOTRANSFERASE 60 IU/L (21-72); ALBUMIN 1.8 g/dL (3.5-5.0); ALKALINE PHOSPHATASE 97 IU/L (38-126); ANION GAP 4 mEq/L (8-16); ASPARTATE AMINOTRANSFERASE 78 IU/L (17-59); BILIRUBIN,TOTAL 4.8 mg/dL (0.1-1.4); CALCIUM 7.9 mg/dL (8.5-10.4); CARBON DIOXIDE 26 mEq/l (22-31); CHLORIDE 112 mEq/L (97-110); GLOMERULAR FILTRATION RATE > 60; GLUCOSE 55 mg/dL (70-100); POTASSIUM 3.4 mEq/L (3.5-5.2); SODIUM 142 mEq/L (134-144); TOTAL PROTEIN 4.3 g/dL (6.3-8.2)
[2017-04-22 05:58] LABS: BILIRUBIN-CONJUGATED 2.3 mg/dL (0.0-0.5); BILIRUBIN-UNCONJUGATED 2.5 mg/dL (0.0-1.1)
[2017-04-22 06:08] LABS: HYPOCHROMIA 1+; MACROCYTES 2+; PLATELET ESTIMATE DECREASED (ADEQ); POLYCHROMASIA 1+
[2017-04-22] MEDS ORDERED: POTASSIUM CL 10 MEQ TAB PO ONE ×2 (07:51→22:00)
[2017-04-22] MEDS: PROPRANOLOL HCL 20 MG TAB PO SCH ×2 (08:27→20:46)
[2017-04-22] MEDS: FOLIC ACID 1 MG TAB PO SCH (08:29)
[2017-04-22] MEDS: PANTOPRAZOLE SODIUM 40 MG TAB PO SCH ×2 (08:29→20:46)
[2017-04-22] MEDS: FUROSEMIDE 20 MG/2 ML VIAL IVP SCH ×2 (08:30→15:19)
--- NOTE | 2017-04-22 09:16 | HOSPPROG ---
Hospitalist Progress Note Assessment/Plan: 46-year-old male presents with septic shock secondary to Vibrio bacteremia c/b acute liver failure from recently diagnosed alcoholic cirrhosis Plan: #. Septic shock secondary to vibrio bacteremia after ingestion of raw oysters, with increased risk of infection due to compromised immune system in setting of cirrhosis. Overall improving. Required combination of albumin + steroid burst + levo/vaso in order to stabilize. -weaned off hydrocortisone -cont Levaquin, plan for 14 days of therapy per ID -repeat BCx's NGTD #. SUSANNAH. Secondary to septic shock and hypoperfusion, 2 weeks of diuretic use. Resolved. #. Volume overload / Anasarca. Slowly diuresing, still 10 kg up from dry weight. -Increase to BID Lasix -follow I&O, daily weights #. Metabolic acidosis. Secondary to lactic acidosis, resolved. Off bicarb. #. Anemia. Secondary to cirrhosis w/o e/o blood loss, decline from 11 to 8.2 w / IVF (likely some dilutional component). Hgb stable, up to 8.7. - high risk for bleeding with recently banded varices as well as DIC/liver- coagulopathy #. Acute liver failure with Alcoholic Cirrhosis. New diagnosis 03/28 of chronic liver disease secondary to alcoholism as well as possible low alpha-1 antitrypsin level per recent evaluation at [facility] w/ varices banded - Lasix resumed as above - per radiology, ascites not sufficient for para - recent US demonstrating biliary sludge and hydrops, but defer further biliary imaging as infectious source is clearly vibrio - currently receiving SBP ppx w/ levo - MELD now 27, down from 34 (was 27 during 04/01 hospitalization), 76% 90-day mortality risk - will need outpt Hepatology eval - not currently transplant candidate, last drink 03/27 #. Esophageal varices. No e/o bleeding. -resume propranolol #. DIC and Coagulopathy. 2/2 combination of infxn-induced DIC and underlying liver-failure mediated coagulopathy - if bleeds, consider Plts/FFP - s/p 3 d vit K - monitor daily PT/PTT #. Possible RLL aspiration pneumonia. CXR w/ dense RLL infiltration and physical exam w/ aegophony/reduced air movement in R base - very unlikely to be source of current bacteremia, though covered for community organisms/aspiration by Levofloxacin Diet. Regular Prophylaxis. High risk, pharm contraindicated given above, SCDs / ambulation Code. Full per patient, is MPOA Disposition. Cont inpt Subjective: Pt feels better. No abdominal pain or diarrhea. No fevers. Still quite puffy throughout his body. Objective: Vital Signs Temp Pulse Resp BP Pulse Ox 36.9 C 58 L 16 115/79 96 04/22/17 08:00 04/22/17 08:00 04/22/17 08:00 04/22/17 08:00 04/22/17 08:00 Laboratory Results 04/22/17 05:05 04/22/17 05:05 04/21/17 04/22/17 04/23/17 05:59 05:59 05:59 Intake Total 1930 1350 Output Total 4200 1000 Balance -2270 350 PT 34.9 SEC (12.0-15.0) H 04/20/17 04:00 INR 3.40 (0.83-1.16) H 04/20/17 04:00 - Physical Exam Constitutional: no apparent distress Eyes: PERRL Ears, Nose, Mouth, Throat: moist mucous membranes Cardiovascular: regular rate and rhythym Respiratory: no respiratory distress, clear to auscultation Gastrointestinal: normoactive bowel sounds, soft, non-tender abdomen, distension Skin: warm Musculoskeletal: full muscle strength Neurologic: AAOx3, other (3+ b/l LE pitting edema with generalized anasarca) Psychiatric: interacting appropriately ICD10 Worksheet Patient Problems: Problems Problem Status Onset Sepsis due to Vibrio vulnificus Acute
[2017-04-22] MEDS: POTASSIUM CL 20 MEQ TAB PO SCH ×2 (10:53→11:34)
--- NOTE | 2017-04-22 16:08 | PCMIDPN ---
Assessment/Plan: Assessment: Vibrio vulnificus bloodstream infection. Liver cirrhosis underlying cause for elevated iron state. Patient is doing clinically much better on oral Levaquin. Leukocytosis slowly resolving. Plan: 1. Continue Levaquin oral therapy. 2. Anticipated duration of 14 days total. 3. Follow clinical course. Possibly able to discharge home with outpatient follow-up today or tomorrow. Subjective: Patient resting in his hospital bed. He has no new complaints. Daughter in the room. He denies any fevers or chills. Tolerating Levaquin without nausea or vomiting. Patient denies diarrhea. Objective: Levaquin #2 Vital Signs Temp Pulse Resp BP Pulse Ox 36.2 C 62 98 H 118/73 96 04/22/17 14:47 04/22/17 14:47 04/22/17 14:47 04/22/17 14:47 04/22/17 08:00 Laboratory Results 04/22/17 05:05 04/22/17 05:05 04/21/17 04/22/17 04/23/17 05:59 05:59 05:59 Intake Total 1930 1350 1300 Output Total 4200 1000 1000 Balance -2270 350 300 - Physical Exam General Appearance: WD/WN, alert, no apparent distress, non-toxic EENT: scleral icterus Respiratory: lungs clear, normal breath sounds, No respiratory distress Cardiac/Chest: regular rate, rhythm, No tachycardia Abdomen: non-tender, soft, distended, ascites, No mass Skin: normal color, warm/dry, jaundice, No rash Neuro/Psych: alert, normal mood/affect, oriented x 3 ICD10 Worksheet Patient Problems: Problems Problem Status Onset Sepsis due to Vibrio vulnificus Acute
[2017-04-22 18:31] LABS: POTASSIUM 3.6 mEq/L (3.5-5.2)
[2017-04-23 04:24] LABS: ABSOLUTE NRBC COUNT 0.02 10^3/uL (0-0.01); ADD DIFF? YES; ADD MORPH? NO; ATYPICAL LYMPHOCYTE FLAG 40 (0-99); FRAGMENT RBC FLAG 0 (0-99); HEMATOCRIT 28.4 % (40.0-51.0); HEMOGLOBIN 9.3 g/dL (13.7-17.5); LIPEMIA HEMOLYSIS FLAG 80 (0-99); MEAN CELL HEMOGLOBIN 33.9 pg (27.9-34.1); MEAN CELL HEMOGLOBIN CONCENTR. 32.7 g/dL (32.4-36.7); MEAN CELL VOLUME 103.6 fL (81.5-99.8); MEAN PLATELET VOLUME 11.7 fL (8.7-11.7); NRBC-AUTO% 0.2 % (0.0-0.2); PLATELET CLUMPS FLAG 0 (0-99); PLATELET COUNT 66 10^3/uL (150-400); RED BLOOD CELL COUNT 2.74 10^6/uL (4.40-6.38); RED CELL DISTRIBUTION WIDTH 16.5 % (11.5-15.2)
[2017-04-23 04:30] LABS: ADD SCAN? NO; LEFT SHIFT FLG 120 (0-99)
[2017-04-23 04:48] LABS: MACROCYTES 2+; PLATELET ESTIMATE DECREASED (ADEQ); TOXIC GRANULATION PRESENT
[2017-04-23 04:58] LABS: ALANINE AMINOTRANSFERASE 59 IU/L (21-72); ALBUMIN 1.7 g/dL (3.5-5.0); ALKALINE PHOSPHATASE 125 IU/L (38-126); ANION GAP 4 mEq/L (8-16); ASPARTATE AMINOTRANSFERASE 84 IU/L (17-59); BILIRUBIN,TOTAL 4.5 mg/dL (0.1-1.4); CALCIUM 7.7 mg/dL (8.5-10.4); CARBON DIOXIDE 26 mEq/l (22-31); CHLORIDE 111 mEq/L (97-110); GLOMERULAR FILTRATION RATE > 60; GLUCOSE 63 mg/dL (70-100); POTASSIUM 3.8 mEq/L (3.5-5.2); SODIUM 141 mEq/L (134-144); TOTAL PROTEIN 4.1 g/dL (6.3-8.2)
[2017-04-23 05:21] LABS: BILIRUBIN-CONJUGATED 2.2 mg/dL (0.0-0.5); BILIRUBIN-UNCONJUGATED 2.3 mg/dL (0.0-1.1)
[2017-04-23] MEDS: FUROSEMIDE 20 MG/2 ML VIAL IVP SCH (09:50)
[2017-04-23] MEDS: PROPRANOLOL HCL 20 MG TAB PO SCH ×2 (09:51→21:00)
[2017-04-23] MEDS: POTASSIUM CL 20 MEQ TAB PO SCH (09:51)
[2017-04-23] MEDS: FOLIC ACID 1 MG TAB PO SCH (09:51)
[2017-04-23] MEDS: PANTOPRAZOLE SODIUM 40 MG TAB PO SCH ×2 (09:51→21:02)
[2017-04-23] MEDS ORDERED: POTASSIUM CL 10 MEQ TAB PO ONE ×2 (10:02→21:08)
--- NOTE | 2017-04-23 13:15 | HOSPPROG ---
Hospitalist Progress Note Assessment/Plan: 46-year-old male presents with septic shock secondary to Vibrio bacteremia c/b acute liver failure from recently diagnosed alcoholic cirrhosis. Stable from infection standpoint, working on diuresis. Still volume up. #. Septic shock secondary to vibrio bacteremia after ingestion of raw oysters, with increased risk of infection due to compromised immune system in setting of cirrhosis. Improved. Required albumin, steroids, pressors. -weaned off hydrocortisone -cont Levaquin, plan for 14 days of therapy per ID -repeat BCx's NGTD #. SUSANNAH. Secondary to septic shock and hypoperfusion with h/o 2 weeks of diuretic use. Resolved. #. Volume overload / Anasarca. Slowly diuresing, down 4 kg in past few days. UOP tapered off a bit yesterday. -Increase Lasix -sodium restricted diet -monitor renal function closely -follow I&O, daily weights #. Metabolic acidosis. Secondary to lactic acidosis, resolved. Off bicarb. #. Anemia. Secondary to cirrhosis, no e/o blood loss, hgb 11 to 8.2 (likely some dilutional component). Hgb stable, up to 8.7. - high risk for bleeding with recently banded varices as well as DIC/liver coagulopathy #. Alcoholic Cirrhosis and ascites. New diagnosis 03/28 per recent evaluation at [facility]. Per radiology, ascites not sufficient for paracentesis. Meld 27, down from 34, 76% 90-day mortality risk. - cont lasix as above - add spironolactone, monitor K closely - low sodium diet - SBP ppx w/ levo - will need outpt Hepatology f/u - not currently transplant candidate, last drink 03/27 #. Esophageal varices. No e/o bleeding. - resume propranolol #. DIC and Coagulopathy. 2/2 combination of infxn-induced DIC and underlying liver-failure mediated coagulopathy - if bleeds, consider Plts/FFP - s/p 3 d vit K - monitor daily PT/PTT #. ?RLL aspiration pneumonia vs atelectasis or effusion. No respiratory symptoms. Unlikely to be source of bacteremia, though covered by Levofloxacin Prophylaxis. High risk, pharm contraindicated given above, SCDs / ambulation Full code Disposition. Cont inpt, home soon when volume status improved. Subjective: Pt feels better. Less swelling in legs and abdomen. Denies CP or SOB. No fevers. No diarrhea or abdominal pain. Objective: Vital Signs Temp Pulse Resp BP Pulse Ox 37.1 C 60 18 112/74 98 04/23/17 11:15 04/23/17 11:15 04/23/17 11:15 04/23/17 11:15 04/23/17 11:15 Laboratory Results 04/23/17 04:00 04/23/17 04:00 04/22/17 04/23/17 04/24/17 05:59 05:59 05:59 Intake Total 1350 1650 Output Total 1000 2000 Balance 350 -350 PT 34.9 SEC (12.0-15.0) H 04/20/17 04:00 INR 3.40 (0.83-1.16) H 04/20/17 04:00 - Physical Exam Constitutional: no apparent distress Eyes: PERRL, icteric sclera Ears, Nose, Mouth, Throat: moist mucous membranes Cardiovascular: regular rate and rhythym Respiratory: no respiratory distress, clear to auscultation Gastrointestinal: normoactive bowel sounds, other (soft, mild distention, nontender) Skin: other (jaundice) Musculoskeletal: full muscle strength, other (2-3+ bl LE edema) Neurologic: AAOx3 Psychiatric: interacting appropriately ICD10 Worksheet Patient Problems: Problems Problem Status Onset Sepsis due to Vibrio vulnificus Acute
[2017-04-23] MEDS ORDERED: FUROSEMIDE 20 MG/2 ML VIAL IVP SCH (13:20)
--- NOTE | 2017-04-23 15:09 | PCMIDPN ---
Assessment/Plan: Assessment: Vibrio vulnificus bloodstream infection. Liver cirrhosis underlying cause for elevated iron state. Patient is doing clinically much better on oral Levaquin. Leukocytosis slowly resolving. Plan: 1. Continue Levaquin oral therapy. 2. Anticipated duration of 14 days total. 3. Follow clinical course. Able to discharge home with outpatient follow-up soon. 04/23/17 18:04 Subjective: Patient is sitting up in a chair. is in room. No new complaints. Feels generally better. States that his legs are less swollen. No fevers or chills. Objective: Levaquin #3 Vital Signs Temp Pulse Resp BP Pulse Ox 37.1 C 60 18 112/74 98 04/23/17 11:15 04/23/17 11:15 04/23/17 11:15 04/23/17 11:15 04/23/17 11:15 Laboratory Results 04/23/17 04:00 04/23/17 04:00 04/22/17 04/23/17 04/24/17 05:59 05:59 05:59 Intake Total 1350 1650 Output Total 1000 2000 Balance 350 -350 - Physical Exam General Appearance: WD/WN, alert, no apparent distress, non-toxic Respiratory: lungs clear, normal breath sounds, No respiratory distress Cardiac/Chest: regular rate, rhythm, No tachycardia Extremities: pedal edema Skin: normal color, warm/dry, No rash Neuro/Psych: alert, normal mood/affect, oriented x 3 ICD10 Worksheet Patient Problems: Problems Problem Status Onset Sepsis due to Vibrio vulnificus Acute
[2017-04-23] MEDS: SPIRONOLACTONE 25 MG TAB PO SCH (16:19)
[2017-04-24 04:48] LABS: ADD DIFF? YES; ADD MORPH? NO; ATYPICAL LYMPHOCYTE FLAG 50 (0-99); FRAGMENT RBC FLAG 0 (0-99); HEMATOCRIT 28.1 % (40.0-51.0); HEMOGLOBIN 9.1 g/dL (13.7-17.5); LIPEMIA HEMOLYSIS FLAG 80 (0-99); MEAN CELL HEMOGLOBIN 33.5 pg (27.9-34.1); MEAN CELL HEMOGLOBIN CONCENTR. 32.4 g/dL (32.4-36.7); MEAN CELL VOLUME 103.3 fL (81.5-99.8); MEAN PLATELET VOLUME 11.6 fL (8.7-11.7); PLATELET CLUMPS FLAG 0 (0-99); PLATELET COUNT 64 10^3/uL (150-400); RED BLOOD CELL COUNT 2.72 10^6/uL (4.40-6.38); RED CELL DISTRIBUTION WIDTH 16.2 % (11.5-15.2)
[2017-04-24 04:54] LABS: ADD SCAN? NO; LEFT SHIFT FLG 120 (0-99)
[2017-04-24 05:08] LABS: ALANINE AMINOTRANSFERASE 55 IU/L (21-72); ALBUMIN 1.8 g/dL (3.5-5.0); ALKALINE PHOSPHATASE 115 IU/L (38-126); ANION GAP 5 mEq/L (8-16); ASPARTATE AMINOTRANSFERASE 69 IU/L (17-59); BILIRUBIN,TOTAL 5.5 mg/dL (0.1-1.4); CALCIUM 7.7 mg/dL (8.5-10.4); CARBON DIOXIDE 24 mEq/l (22-31); CHLORIDE 110 mEq/L (97-110); GLOMERULAR FILTRATION RATE > 60; GLUCOSE 64 mg/dL (70-100); POTASSIUM 3.8 mEq/L (3.5-5.2); SODIUM 139 mEq/L (134-144); TOTAL PROTEIN 4.1 g/dL (6.3-8.2)
[2017-04-24 06:06] LABS: BILIRUBIN-CONJUGATED 2.5 mg/dL (0.0-0.5)
[2017-04-24 06:12] LABS: ACANTHOCYTES 1+; MACROCYTES 1+; POLYCHROMASIA 1+
[2017-04-24 06:13] LABS: PLATELET ESTIMATE DECREASED (ADEQ); SMUDGE CELLS 1+
--- NOTE | 2017-04-24 07:34 | HOSPPROG ---
Hospitalist Progress Note Assessment/Plan: DIAGNOSES: #. Septic shock secondary to vibrio bacteremia after ingestion of raw oysters, -cont Levaquin, plan for 14 days of therapy per ID -repeat BCx's NGTD #. SUSANNAH. Resolved. #. Volume overload / Anasarca due to liver disease and resuscitation fluids. Slowly diuresing, down 4 kg in past few days. UOP tapered off a bit yesterday. -continue Lasix, will increase aldactone -sodium restricted diet -monitor renal function closely -follow I&O, daily weights #. Metabolic acidosis. resolved. Off bicarb. #. Anemia. Secondary to cirrhosis, #. Alcoholic Cirrhosis and ascites. New diagnosis 03/28 per recent evaluation at [facility]. Per radiology, ascites not sufficient for paracentesis. Meld 27, down from 34, 76% 90-day mortality risk. - cont lasix spironolactone, as above - will need outpt Hepatology f/u at [facility] - not currently transplant candidate, last drink 03/27 #. Esophageal varices. No e/o bleeding. - resume propranolol Prophylaxis. High risk, pharm contraindicated given above, SCDs / ambulation PLANS: probable discharge tomorrow SUBJECTIVE: feeling better overall still with some edema OBJECTIVE Vitals reviewed: stable without fever Exam: alert oriented skin warm dry color ok resps not labored lungs clear BSs heart regular abd soft mildly distended nontender, bowel sounds present limbs warm, still with bilateral marked pitting edema iv site ok Objective: Vital Signs Temp Pulse Resp BP Pulse Ox 36.9 C 64 16 112/65 94 04/24/17 00:00 04/24/17 00:00 04/24/17 00:00 04/24/17 00:00 04/24/17 00:00 Laboratory Results 04/24/17 04:30 04/24/17 04:30 04/23/17 04/24/17 04/25/17 06:59 06:59 06:59 Intake Total 1650 950 Output Total 2000 950 Balance -350 0 PT 34.9 SEC (12.0-15.0) H 04/20/17 04:00 INR 3.40 (0.83-1.16) H 04/20/17 04:00 ICD10 Worksheet Patient Problems: Problems Problem Status Onset Sepsis due to Vibrio vulnificus Acute
[2017-04-24] MEDS ORDERED: POTASSIUM CL 10 MEQ TAB PO ONE ×2 (08:23→10:45)
[2017-04-24] MEDS: PROPRANOLOL HCL 20 MG TAB PO SCH ×2 (10:43→20:26)
[2017-04-24] MEDS: FOLIC ACID 1 MG TAB PO SCH (10:43)
[2017-04-24] MEDS: PANTOPRAZOLE SODIUM 40 MG TAB PO SCH ×2 (10:43→20:26)
[2017-04-24] MEDS: FUROSEMIDE 20 MG/2 ML VIAL IVP SCH ×2 (10:44→17:40)
[2017-04-24] MEDS: SPIRONOLACTONE 25 MG TAB PO SCH ×2 (10:45→11:43)
[2017-04-24] MEDS ORDERED: SPIRONOLACTONE 50 MG TAB PO SCH (10:45)
[2017-04-24] MEDS: FUROSEMIDE 40 MG TAB PO SCH (17:46)
[2017-04-24 19:35] VITALS: RESP 16
[2017-04-25 07:05] VITALS: TEMP 98.4
[2017-04-25] MEDS: PANTOPRAZOLE SODIUM 40 MG TAB PO SCH (08:13)
[2017-04-25] MEDS: FOLIC ACID 1 MG TAB PO SCH (08:13)
[2017-04-25] MEDS: SPIRONOLACTONE 25 MG TAB PO SCH (08:13)
[2017-04-25] MEDS: FUROSEMIDE 40 MG TAB PO SCH ×2 (08:13→15:46)
[2017-04-25] MEDS ORDERED: FUROSEMIDE 40 MG TAB PO SCH (09:00)
[2017-04-25] MEDS ORDERED: SPIRONOLACTONE 25 MG TAB PO SCH (09:00)
[2017-04-25 12:44] VITALS: BP 100/55; PULSE 55; O2SAT 95
[2017-04-25] MEDS: PROPRANOLOL HCL 20 MG TAB PO SCH (12:55)
== END 2017-04-25 16:06 | disposition home or self-care (01) | DRG 871 ==
LOC: F2N 13:52 → F3E 04-20 18:33
PROVIDERS: ADMIT Internal Medicine; ATTEND Internal Medicine
PROC: 3E043XZ Introduction of Vasopressor into Central Vein, Percutaneous Approach (ICD-10-PCS; principal; 2017-04-18)
DX: A41.59 Other Gram-negative sepsis (principal); R65.21 Severe sepsis with septic shock; A05 Other bacterial foodborne intoxications, not elsewhere classified; E87.2 Acidosis; N17.0 Acute kidney failure with tubular necrosis; K70.40 Alcoholic hepatic failure without coma; K70.30 Alcoholic cirrhosis of liver without ascites; I85.00 Esophageal varices without bleeding; F10.21 Alcohol dependence, in remission; D64.89 Other specified anemias; D65 Disseminated intravascular coagulation [defibrination syndrome]; J69.0 Pneumonitis due to inhalation of food and vomit; Z87.891 Personal history of nicotine dependence
CPT/HCPCS: 82947-QW; J1940; J1956; J2543; P9047